=== PATIENT | male | born 1985 | race Caucasian/White ===

== ENCOUNTER 2020-03-06 17:14 | Emergency (ER) | payer OTHER, BC, SELFPAY ==
[2020-03-06 17:25] VITALS: BP 138/78; PULSE 83; RESP 16; TEMP 36.8; O2SAT 100; BMI 35.1
--- NOTE | 2020-03-06 18:34 | DI.RAD.S_ITS ---
PROCEDURE: XR FINGER LT MIN 2V INDICATIONS: left pinky laceration TECHNIQUE: AP hand, 2 views of the left fifth finger(s) acquired. COMPARISON: None. FINDINGS: Bones: There is a cortical irregularity involving the lateral/ulnar side of the distal phalanx of the fifth finger which appears to be in close proximity to the site of skin defect. This may represent a small avulsion fracture fragment. No other fractures visualized. Alignment is anatomic. No suspicious bony lesions. Soft tissues: No suspicious soft tissue calcifications. No radiopaque soft tissue foreign bodies. IMPRESSION: Possible avulsion fragment over the lateral/ulnar side of the left fifth finger distal phalanx. This appears to be in close proximity to site of skin laceration. No radiopaque soft tissue foreign bodies. Dictated by: Landry Napier M.D. on 03/06/2020 at 19:48 Approved by: Landry Napier M.D. on 03/06/2020 at 19:50
--- NOTE | 2020-03-06 19:19 | ED.WOUNDLAC ---
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 He denies other injury and is otherwise well and free of complaint. He denies numbness, weakness or tingling. Related Data Previous Rx's Medication Instructions Recorded cephalexin [Keflex] 500 mg PO QID 7 Days #28 cap 03/06/20 Allergies Allergy/AdvReac Type Severity Reaction Status Date / Time No Known Drug Allergies Allergy Verified 03/06/20 17:29 Review of Systems Constitutional Constitutional: Denies chills, Denies fatigue, Denies fever(s), Denies frequent falls, Denies lethargy and Denies weakness Eyes Eyes: Denies change in vision, Denies eye discharge, Denies irritation and Denies loss of vision ENT Ears, Nose, Mouth, and Throat: Denies change in voice, Denies dizziness, Denies neck pain, Denies sore throat and Denies throat swelling Cardiovascular Cardiovascular: Denies chest pain, Denies irregular heart rhythm, Denies lightheadedness, Denies palpitations, Denies dyspnea, Denies dyspnea on exertion and Denies orthopnea Respiratory Respiratory: Denies cough, Denies dyspnea, Denies dyspnea on exertion and Denies wheezing Gastrointestinal Gastrointestinal: Denies abdominal pain, Denies change in bowel habits, Denies diarrhea, Denies nausea and Denies vomiting Musculoskeletal Musculoskeletal: Denies neck pain and Denies numbness Integumentary/Breasts Skin/Breast: Denies pruritus, Denies erythema, Denies rash and Reports wounds Neurologic Neurologic: Denies behavioral changes, Denies confusion, Denies dizziness, Denies frequent falls, Denies loss of vision, Denies numbness and Denies weakness Psychiatric Psychiatric: Denies anxiety, Denies behavioral changes, Denies confusion, Denies depression, Denies homicidal ideation and Denies suicidal ideation Endocrine Endocrine: Denies fatigue, Denies flushing and Denies palpitations Hematologic/Lymphatic Hematologic/Lymphatic: Denies easy bruising Allergic/Immunologic Allergic/Immunologic: Denies urticaria, Denies throat swelling and Denies wheezing Patient History Social History Smoking Status: Former smoker Smoking Status: Former smoker alcohol intake frequency: a few times a month Alcohol type: beer Substance Use Type: does not use Exam Narrative Exam Narrative: GEN: AOx3 and in mild distress EYES: Pupils are equal, round, and reactive to light and accommodation. Extraoccular muscles are intact bilaterally. There is no subconjunctival hemorrhage or exudate. CHEST: Lungs are clear to auscultation bilaterally and free of wheezes, rales, or rhonchi. Heart rate is regular rhythm, there are no murmurs, clicks, rubs, or gallops. There is no chest wall tenderness. ABD: Abdomen is soft and nontender. There is no guarding or rebound. Bowel sounds are normal in all 4 quadrants. There is no mass or organomegaly. EXT: Clean laceration overlying tip of left 5th finger with some minimal involvement of the nail. Nail fold has been spared. Minimal active bleeding. No loss of sensation, strength or range of motion. Full painless ROM of all extremities with no loss of sensation or strength. SKIN: Warm, pink, and dry. No erythema or rash Initial Vital Signs Initial Vital Signs: Vital Signs Temperature 98.2 F 03/06/20 17:25 Pulse Rate 83 03/06/20 17:25 Respiratory Rate 16 03/06/20 17:25 Blood Pressure 138/78 03/06/20 17:25 Pulse Oximetry 100 03/06/20 17:25 Procedures Laceration Repair Laceration 1: Site: hand Side (If applicable): left Size (cm): 1.5 Description: linear Depth: simple, single layer Pre-repair: wound explored, irrigated extensively and deep structures intact Skin layer closed with: nylon Size (cm): 5-0 Number of sutures: 4 Technique: simple, interrupted Nerve Block Nerve Block 1: Time out performed: Yes Local Anesthetic: lidocaine 1% and with bicarb Amount of anesthesia used (mL): 4 Side: left Nerve Blocks: digital Procedure Successful: Yes Patient Tolerated Procedure: Well Complications: none Course Orders Ordered: ED Orders 03/06/20 18:34 XR finger LT min 2V Stat Discontinued Medications Lidocaine/Sodium Bicarbonate (Buffered Lidocaine 10 Ml Syr) 10 ml INJ NOW ONE Stop: 03/06/20 18:35 Last Admin: 03/06/20 19:47 Dose: 10 ml Documented by: HAYDEN Vital Signs Vital signs: Vital Signs - 8 hr 03/06/20 19:46 Pulse Rate 69 Blood Pressure [Right Arm] 112/66 Pulse Oximetry 98 MDM - Wound/Laceration Imaging Data Extremity x-ray #1: Radiologist's Impression: Chart Viewer Diagnostics DATE TYPE STATUS REF RANGE/AUTHOR Hx 03/06/20 18:34 Landry Napier Dustin M 34, M111/08/1984 [facility], Main ED 180.34cm 114.305kg BMI: 35.1kg/m? Wound/Laceration Search Chart No Data to Display ONSET 03/06/20 19:46 Rishi Burch 34 M [address] [address] XRay Report Signed Patient: Rishi Burch MMR#: [id number] : 1985Acct:[id number] Age/Sex: 34 / MDate of Service: 03/06/20 Loc: ED Accession Number: [id number] Procedure: XR finger LT min 2V Ordering Provider: Hunter Valdez D.O. PROCEDURE: XR FINGER LT MIN 2V INDICATIONS: left pinky laceration TECHNIQUE: AP hand, 2 views of the left fifth finger(s) acquired. COMPARISON: None. FINDINGS: Bones: There is a cortical irregularity involving the lateral/ulnar side of the distal phalanx of the fifth finger which appears to be in close proximity to the site of skin defect. This may represent a small avulsion fracture fragment. No other fractures visualized. Alignment is anatomic. No suspicious bony lesions. Soft tissues: No suspicious soft tissue calcifications. No radiopaque soft tissue foreign bodies. IMPRESSION: Possible avulsion fragment over the lateral/ulnar side of the left fifth finger distal phalanx. This appears to be in close proximity to site of skin laceration. No radiopaque soft tissue foreign bodies. Dictated by: Landry Napier M.D. on 03/06/2020 at 19:48 Approved by: Landry Napier M.D. on 03/06/2020 at 19:50 [facility] Narrative Medical decision making narrative: Extensive discussion with patient and his regarding the importance of close follow-up and that despite soaking, scrubbing and cleaning as well as administration of antibiotics he still runs the risk of infection and close follow-up is indicated to help be sure we are moving in the right direction. He expresses his understanding, understands return precautions and has had his questions answered to his apparent satisfaction Discharge Plan Departure Patient Disposition: Home Clinical Impression: Laceration Finger fracture, left Qualifiers: Encounter type: initial encounter Finger: little finger Fracture type: open Phalanx: distal Fracture alignment: nondisplaced Qualified Code(s): S62.667B - Nondisplaced fracture of distal phalanx of left little finger, initial encounter for open fracture Discharge Date/Time: 03/06/20 19:57 Instructions: DI for Laceration Repair Activity Restrictions/Additional Instructions: *You have been diagnosed with [ fifth finger laceration ] *What to do: *Take medications as directed * Please keep the wound clean and dry to the best of your ability. Please monitor for signs of infection such as redness to the skin or increasing pain. Have the sutures removed by your doctor in about 7 days. If you are unable to get into your doctor, we would be happy to remove the sutures in that same timeframe. *Return to ER if you should have any new, worsening or concerning symptoms Prescriptions: New cephalexin [Keflex] 500 mg capsule 500 mg PO QID 7 Days Qty: 28 RF: 0 Referrals: Jude Munoz MD [Physician] -
[2020-03-06 19:46] VITALS: BP 112/66; PULSE 69; O2SAT 98
[2020-03-06] MEDS: LIDO 1%/SOD BICARB 8.4% (10ML) 10 ML SYRINGE INJ (19:47)
== END 2020-03-06 19:57 | disposition home or self-care (01) ==
PROVIDERS: Emergency Provider Emergency Medicine
DX: S62.667B Nondisplaced fracture of distal phalanx of left little finger, initial encounter for open fracture (principal); W31.89XA Contact with other specified machinery, initial encounter
CPT/HCPCS: 12001; 64450; 73140; 99284

== ENCOUNTER 2024-12-02 19:55 | Emergency (ER) | payer OTHER, SELFPAY ==
[2024-12-02] VITALS (8 sets, daily range): BP systolic 116–163; BP diastolic 56–77; PULSE 90–127; RESP 19–22; TEMP 38.8; O2SAT 95–97; BMI 36.2
--- NOTE | 2024-12-02 20:13 | DI.RAD.S_ITS ---
PROCEDURE: XR CHEST 1V INDICATIONS: suspected sepsis TECHNIQUE: One view of the chest was acquired. COMPARISON: None. FINDINGS: Surgical changes and devices: None. Lungs and pleura: Lungs are clear. No pleural effusions or pneumothorax. Mediastinum: Mediastinal contours appear normal. Heart size is normal. Bones and chest wall: No suspicious bony lesions. Overlying soft tissues appear unremarkable. IMPRESSION: No acute cardiopulmonary pathology. Dictated by: Von Mack M.D. on 12/02/2024 at 20:45 Approved by: Von Mack M.D. on 12/02/2024 at 20:45
--- NOTE | 2024-12-02 20:13 | EKG_ITS ---
[address] [address] Test Date: 2024-12-02 Pat Name: Rishi Burch Department: 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
[2024-12-02 21:03] LABS: Add Manual Diff / Slide Review NO; Basophils Absolute Auto 0 /uL (0-100); Basophils Percent Auto 0.4 % (0-2); Eosinophils Absolute Auto 100 /uL (0-450); Eosinophils Percent Auto 0.7 % (2-4); Lymphocytes Absolute Auto 800 /uL (1100-4500); Lymphocytes Percent Auto 9.5 % (25-40); Mean Corpuscular HGB Conc 35.6 % (30-36); Mean Corpuscular Hemoglobin 28.9 PG (26-34); Mean Corpuscular Volume 81.2 fL (80-100); Monocytes Absolute Auto 700 /uL (0-900); Neutrophils Absolute Auto 6700 /uL (1500-7000); Neutrophils Percent Auto 81.4 % (50-75); Platelet Count 182 X10^3/uL (150-400); Red Blood Cell Count 5.17 X10^6/uL (4.5-5.9); Red Cell Distribution Width 13.4 % (11.6-14.8); White Blood Cell Count 8.2 X10^3/uL (4.5-11.0)
[2024-12-02 21:08] LABS: INR 1.1 (0.9-1.3); Prothrombin Time 12.1 SECONDS (9.4-12.5)
[2024-12-02 21:11] LABS: PTT Partial Thromboplastin Tim 32 SECONDS (25.1-36.5)
[2024-12-02 21:12] LABS: Alanine Aminotransferase 67 IU/L (<50); Albumin 4.8 g/dL (3.5-5.0); Albumin Globulin Ratio 1.6 (1.0-2.8); Alkaline Phosphatase 65 U/L (38-126); Aspartate Aminotransferase 39 IU/L (17-59); BUN Creatinine Ratio 13.3 (6-22); Bilirubin Total 0.8 mg/dL (0.2-1.3); Blood Urea Nitrogen 15 mg/dL (9-20); Calcium 8.9 mg/dL (8.4-10.2); Carbon Dioxide 24 mmol/L (22-32); Chloride 100 mmol/L (98-107); Estimated Glomerular Filt Rate > 60 mL/min (>60); Glucose 108 mg/dL (70-100); HEMOLYSIS < 15 (0-50); Lactate (Lactic Acid) 1.3 mmol/L (0.7-2.1); Lipase 64 U/L (23-300); Potassium 4.1 mmol/L (3.4-5.1); Sodium 134 mmol/L (137-145); Total Protein 7.8 g/dL (6.3-8.2)
[2024-12-02] MEDS: SODIUM CHLORIDE 0.9% 1,000 ML 1000 ML IV (21:25)
[2024-12-02 21:30] LABS: Procalcitonin 0.097 ng/mL (<0.5)
[2024-12-02] MEDS: ACETAMINOPHEN IV 1,000 MG/100 ML VIAL 400 MG IV (21:50)
[2024-12-02 22:07] LABS: Erythrocyte Sedimentation Rate 7 MM/HR (0-15)
[2024-12-02 22:10] LABS: Bacteria Urine Occasional (0-1); Culture Indicated Urine Cult Not Indicated; RBC Urine None Seen (0-5/HPF); Squamous Epithelial Cell Urine None Seen (0-5/HPF); Urine Volume 10mL (spun); WBC Urine 0-1/HPF (0-5/HPF)
--- NOTE | 2024-12-02 23:41 | ED.SKABFB ---
HPI - Skin/Abscess/Foreign Bdy General Chief complaint: Skin/Abscess/Foreign Body Stated complaint: fever, infected elbow Time Seen by Provider: 12/02/24 21:21 Source: patient Mode of arrival: Ambulatory Limitations: no limitations History of Present Illness HPI narrative: Patient is a 39-year-old male history of chronic low back pain presenting today with left elbow infection and fever. He reports that for the last day he started noticing some redness over left elbow and today he spiked a fever of 102. He was actually seen evaluated by his PCP yesterday who thought it might be the beginning of bursitis but covered him with Keflex. He was yet to take Keflex but he did machine pecan picker the prescription. This evening he developed a fever of 102 and brought him to the ED. He was no decreased range of motion he is able to flex and extend easily. No numbness tingling or weakness. Related Data Previous Rx's Medication Instructions Recorded scopolamine base 1 mg over 3 days 1 patch transdermal Q3D PRN motion 05/18/24 transdermal patch sickness #10 ea cyclobenzaprine 10 mg tablet 10 mg PO BEDTIME #90 tabs 07/29/24 diclofenac sodium 75 mg 75 mg PO BID PRN pain #180 tabs 07/29/24 tablet,delayed release lisinopril 10 mg tablet 10 mg PO DAILY #90 tabs 07/29/24 pregabalin 150 mg capsule 150 mg PO BID #180 caps 07/29/24 lidocaine 5 % topical patch 1 patch topical DAILY 30 days #30 08/18/24 ea cephalexin 500 mg capsule 500 mg PO Q6H 7 days #28 caps 12/01/24 oxycodone-acetaminophen 5 mg-325 1 tab PO Q6H PRN severe pain #60 12/02/24 mg tablet tabs Allergies Allergy/AdvReac Type Severity Reaction Status Date / Time NSAIDS (Non-Steroidal AdvReac Verified 12/02/24 21:28 Anti-Inflamma Patient History Medical History Chronic low back pain Benign essential HTN History of ITP Social History Smoking Status: Former smoker Smoking Status: Former smoker alcohol intake frequency: a few times a month Alcohol type: beer Exam Initial Vital Signs Initial Vital Signs: Vital Signs Temperature 101.9 F H 12/02/24 20:08 Pulse Rate 127 H 12/02/24 20:08 Respiratory Rate 22 12/02/24 20:08 Blood Pressure 163/63 H 12/02/24 20:08 Pulse Oximetry 97 12/02/24 20:08 Oxygen Delivery Method Room Air 12/02/24 20:08 GENERAL: Alert pleasant well-appearing 39-year-old male and in no acute distress. HEENT: Head atraumatic,EOMI, pupils reactive, face symmetric, moist mucous membranes CARDIOVASCULAR: Regular rate and rhythm without murmurs, rubs or gallops. RESPIRATORY: Breath sounds equal bilaterally, no wheezes rales or rhonchi. ABDOMEN: Soft, nontender. Normoactive bowel sounds all 4 quadrants. No guarding or rebound. EXTREMITIES: Normal range of motion, no clubbing or edema. Neurovascularly intact Full flexion and extension of left AC joint no significant swelling neurovascularly intact NEUROLOGICAL: Alert and oriented x4.Normal gait and speech. SKIN: Left elbow does blanchable erythema noncircumferential Course Orders Ordered: ED Orders 12/02/24 20:13 XR chest 1V Stat EKG-12 Lead Stat RT Consult Eval and Treat NOW 12/02/24 20:40 CRP [C-Reactive Protein Quant] Stat Complete Blood Count AUTO DIFF Stat Comprehensive Metabolic Panel Stat ESR [Erythrocyte Sedimentation Rate] Stat Lactate (Lactic Acid) Stat Lipase Stat PTT Partial Thromboplastin Luis Stat Procalcitonin Stat Prothrombin Time INR Stat 12/02/24 21:15 Blood Culture Stat 12/02/24 21:50 Urine Microscopic Stat Discontinued Medications Sodium Chloride (Normal Saline 0.9%) 1,000 mls @ 1,000 mls/hr IV BOLUS ONE Stop: 12/02/24 21:12 Last Infusion: 12/02/24 23:24 Dose: Infused Documented By: Admin: 12/02/24 21:25 Dose: 1,000 mls/hr Documented By: LONNIE Acetaminophen (Ofirmev) 1,000 mg in 100 mls @ 400 mls/hr IV NOW ONE Stop: 12/02/24 22:00 Last Infusion: 12/02/24 22:12 Dose: Infused Documented By: Admin: 12/02/24 21:50 Dose: 400 mls/hr Documented By: LONNIE Ceftriaxone Sodium 1,000 mg/ (Sodium Chloride) 100 mls @ 200 mls/hr IV NOW ONE Stop: 12/02/24 23:53 Last Infusion: 12/03/24 00:42 Dose: Infused Documented By: Admin: 12/03/24 00:06 Dose: 200 mls/hr Documented By: LONNIE Ketorolac Tromethamine (Ketorolac 30 Mg/Ml Vial) 15 mg IV NOW ONE Stop: 12/02/24 21:22 Last Admin: 12/02/24 21:47 Dose: Not Given Documented By: LONNIE Ondansetron HCl (Ondansetron 4 Mg/2 Ml Inj) 4 mg IV NOW PRN PRN Reason: Nausea And Vomiting Ondansetron HCl (Ondansetron 4 Mg Odt) 4 mg SL NOW PRN PRN Reason: Nausea And Vomiting Vital Signs Vital signs: Vital Signs - 8 hr 12/02/24 20:08 12/02/24 21:54 12/02/24 21:56 Temperature 101.9 F H Pulse Rate 127 H 102 H Respiratory Rate 22 Blood Pressure 163/63 H 134/77 Pulse Oximetry 97 97 Oxygen Delivery Method Room Air 12/02/24 21:56 12/02/24 22:00 12/02/24 22:30 Temperature Pulse Rate 103 H 100 H 95 H Respiratory Rate 19 Blood Pressure Pulse Oximetry 96 95 95 Oxygen Delivery Method Room Air 12/02/24 23:00 12/02/24 23:17 12/02/24 23:17 Temperature Pulse Rate 90 94 H Respiratory Rate Blood Pressure 116/56 L Pulse Oximetry 95 96 Oxygen Delivery Method 12/02/24 23:30 12/03/24 00:00 12/03/24 00:30 Temperature Pulse Rate 91 H 85 88 Respiratory Rate 18 Blood Pressure Pulse Oximetry 95 94 96 Oxygen Delivery Method 12/03/24 00:41 12/03/24 00:41 Temperature Pulse Rate 89 Respiratory Rate 17 Blood Pressure 114/65 Pulse Oximetry 97 Oxygen Delivery Method Room Air MDM - Skin/Abscess/Foreign Bdy Lab Data 12/02/24 20:40 12/02/24 20:40 Labs: Lab Results 12/02/24 12/02/24 Range/Units 20:40 21:50 WBC 8.2 (4.5-11.0) X10^3/uL RBC 5.17 (4.5-5.9) X10^6/uL Hgb 15.0 (13.5-17.5) g/dL Hct 42.0 (41-53) % MCV 81.2 (80-100) fL MCH 28.9 (26-34) PG MCHC 35.6 (30-36) % RDW 13.4 (11.6-14.8) % Plt Count 182 (150-400) X10^3/uL Neut % (Auto) 81.4 H (50-75) % Lymph % (Auto) 9.5 L (25-40) % [place] % (Auto) 8.0 (3-14) % Eos % (Auto) 0.7 L (2-4) % Baso % (Auto) 0.4 (0-2) % Neut # (Auto) 6700 (7830-1499) /uL Lymph # (Auto) 800 L (2641-3697) /uL [place] # (Auto) 700 (0-900) /uL Eos # (Auto) 100 (0-450) /uL Baso # (Auto) 0 (0-100) /uL ESR 7 (0-15) MM/HR PT 12.1 (9.4-12.5) SECONDS INR 1.1 (0.9-1.3) APTT 32 (25.1-36.5) SECONDS Sodium 134 L (137-145) mmol/L Potassium 4.1 (3.4-5.1) mmol/L Chloride 100 (98-107) mmol/L Carbon Dioxide 24 (22-32) mmol/L BUN 15 (9-20) mg/dL Creatinine 1.13 (0.66-1.25) mg/dL Estimated GFR > 60 (>60) mL/min BUN/Creatinine Ratio 13.3 (6-22) Glucose 108 H (70-100) mg/dL Lactate 1.3 (0.7-2.1) mmol/L Calcium 8.9 (8.4-10.2) mg/dL Total Bilirubin 0.8 (0.2-1.3) mg/dL AST 39 (17-59) IU/L ALT 67 H (<50) IU/L Alkaline Phosphatase 65 (38-126) U/L C-Reactive Protein 12.1 H (<1.0) mg/dL Total Protein 7.8 (6.3-8.2) g/dL Albumin 4.8 (3.5-5.0) g/dL Globulin 3.0 (1.7-4.1) g/dL Albumin/Globulin Ratio 1.6 (1.0-2.8) Lipase 64 (23-300) U/L Procalcitonin 0.097 (<0.5) ng/mL Urine RBC None seen (0-5/HPF) Urine WBC 0-1/hpf (0-5/HPF) Ur Squamous Epith Cells None seen (0-5/HPF) Urine Bacteria Occasional (0-1) (None) Ur Culture Indicated? Cult not indicated Vol Urine Centrifuged 10ml (spun) Urine Dip Bedside Urine Glucose Negative Bedside Urine Bilirubin - Negative Bedside Urine Ketone - Negative Urine Specific [place]pt[place] 1.01 Bedside Urine Occult Blood +/- Bedside Urine pH 7 Bedside Urine Protein - Negative Bedside Urine Urobilinogen - Negative Bedside Urine Nitrite - Negative Bedside Urine Leukocytes - Negative Esterase MDM Narrative Medical decision making narrative: Patient healthy 39-year-old male presenting to day with left elbow redness and fever, noted to have temperature of 101.9?. Blood work has been reviewed WBC 8.2, hemoglobin 15.0 hematocrit 42.0 platelets 182 CMP no significant electrolyte abnormality creatinine 1.3 Lactate 1.3 Bilirubin liver enzymes within normal limits although ALT is slightly high at 67 Procalcitonin 0.09 Patient does have erythema over left elbow. He has full range of motion I do not suspect septic joint at this time. Erythema started yesterday suspect more of a cellulitis. He was febrile on arrival he was given IV Tylenol. He does take a significant amount of NSAIDs. He was given also 1 dose of IV Rocephin here in the ED. Discussed with patient and strict return precautions. Discharge Plan Departure Patient Disposition: Home Clinical Impression: Cellulitis Instructions: DI for Cellulitis -- Adult Activity Restrictions/Additional Instructions: *You have been diagnosed with cellulitis *What to do: At this time monitor. Anticipate redness will go down in a1- 2 days *Continue to take medications as directed Take antibiotic as prescribed Tylenol 1000 mg every 6 hours if needed for pain or fever *Follow up with your primary care provider in 2-3 days or call [phone] *Return to ER if you should have increasing redness swelling decreased range of movement or any new, worsening or concerning symptoms Prescriptions: No Action scopolamine base 1 mg over 3 days patch 3 day 1 patch transdermal Q3D PRN (Reason: motion sickness) Qty: 10 11RF cyclobenzaprine 10 mg tablet 10 mg PO BEDTIME Qty: 90 3RF diclofenac sodium 75 mg tablet,delayed release (DR/EC) 75 mg PO BID PRN (Reason: pain) Qty: 180 3RF Rx Instructions: with food lisinopril 10 mg tablet 10 mg PO DAILY Qty: 90 3RF pregabalin 150 mg capsule 150 mg PO BID Qty: 180 1RF lidocaine 5 % adhesive patch,medicated 1 patch topical DAILY 30 Days Qty: 30 5RF Rx Instructions: leave on most painful area for up to 12 hrs cephalexin 500 mg capsule 500 mg PO Q6H 7 Days Qty: 28 0RF oxycodone-acetaminophen 5-325 mg tablet 1 tab PO Q6H PRN (Reason: severe pain) Qty: 60 0RF Referrals: Goyo Camp DO [Primary Care Provider] - Stand Alone Forms: Patient Portal/API/Survey
[2024-12-03] VITALS: PULSE 85; O2SAT 94
[2024-12-03] MEDS: cefTRIAXone 1,000 MG in SODIUM CHLORIDE 0.9% 100 ML 200 MG IV (00:06)
[2024-12-03 00:30] VITALS: PULSE 88; RESP 18; O2SAT 96
[2024-12-03 00:38] LABS: C-Reactive Protein Quant 12.1 mg/dL (<1.0)
[2024-12-03 00:41] VITALS: BP 114/65; PULSE 89; RESP 17; O2SAT 97
== END 2024-12-03 00:47 | disposition home or self-care (01) ==
PROVIDERS: Emergency Provider Emergency Medicine; PCP Family Medicine
DX: L03.114 Cellulitis of left upper limb (principal); R50.9 Fever, unspecified
CPT/HCPCS: 36415; 71045; 80053; 81003; 81015; 83605; 83690; 84145; 85025; 85610; 85651; 85730; 86140; 87040; 93005; 96361; 96365; 96367; 99284; J0134; J0696; J1885